=== PATIENT | male | born 1960 | race Caucasian/White ===

== ENCOUNTER 2016-06-27 01:33 | Emergency (ER) | payer OTHER ==
[~2016-06-27] VITALS: Ht 172.7 cm; Wt 85.3 kg
[2016-06-27 04:14] VITALS: BP 114/84
== END 2016-06-27 04:17 | disposition home or self-care (01) ==
LOC: EDBD 01:33 → EME 01:33
DX: S80.12XA Contusion of left lower leg, initial encounter (principal); S80.11XA Contusion of right lower leg, initial encounter; V68.0XXA Driver of heavy transport vehicle injured in noncollision transport accident in nontraffic accident, initial encounter
CPT/HCPCS: 73564; 73590; 93005; 99281; 99283